=== PATIENT | female | born 1975 | race Caucasian/White ===

== ENCOUNTER 2016-12-18 10:18 | Inpatient (IN) | payer OTHER ==
[~2016-12-18] VITALS: Ht 162.6 cm; Wt 63.8 kg
[2016-12-23] MEDS ORDERED: CHLORHEXIDINE GLUCONATE 2 % 1 PACK (2 CLOTHS) TOPICAL PRN (06:15)
[2016-12-23] MEDS ORDERED: SODIUM CHLORID 0.9% 500 ML IV PRN (06:15)
[2016-12-23] MEDS ORDERED: LACTATED RINGER'S 1000 ML IV PRN (06:15)
[2016-12-23] MEDS ORDERED: INSULIN HUMAN REGULAR 1,000 UNITS/10 ML VIAL SQ PRN (06:15)
[2016-12-23] MEDS ORDERED: METOPROLOL TARTRATE 25 MG TAB PO PRN (06:15)
[2016-12-23] MEDS ORDERED: POVIDONE IODINE 5% (ANTISEPSIS KIT) 4 APPLICATIONS EACH NARE PRN (06:15)
[2016-12-23] MEDS ORDERED: ceFAZolin 2 GM PREMIX 50 ML IV SCH (06:15)
[2016-12-23] MEDS ORDERED: METF1000 PO (06:49)
[2016-12-23] MEDS ORDERED: LANTUS2P SQ (06:49)
[2016-12-23] MEDS ORDERED: NOVOLOGSS SQ (06:49)
[2016-12-23] MEDS ORDERED: fentaNYL CITRATE 250 MCG/5 ML AMP ONE (06:55)
[2016-12-23] MEDS ORDERED: DICLOFENAC SODIUM 37.5 MG/ML VIAL IV PUSH ONE (06:55)
[2016-12-23] MEDS ORDERED: DEXAMETHASONE SOD PHOS 4 MG/ML VIAL ONE (06:55)
[2016-12-23] MEDS ORDERED: ACETAMINOPHEN 1000 MG/100 ML VIAL IV ONE (06:55)
[2016-12-23] MEDS ORDERED: MIDAZOLAM HCL 2 MG/2 ML VIAL ONE (06:55)
[2016-12-23 06:57] VITALS: BP 117/80; PULSE 96; RESP 20; TEMP 97.9; O2SAT 99
[2016-12-23 07:03] LABS: INTERNATIONAL NORMALIZED RATIO 0.9 RATIO
[2016-12-23] MEDS ORDERED: FAMOTIDINE 20 MG/2 ML VIAL ONE (07:39)
[2016-12-23 11:47] LABS: BLOOD GAS BASE EXCESS -2.1 mmol/L (-2-2); BLOOD GAS CARBOXYHEMOGLOBIN 1.8 % (0-4); BLOOD GAS HCO3 22 mmol/L (22-26); BLOOD GAS O2 HGB SATURATION 97 % (90-100); BLOOD GAS OXYGEN CONTENT 16.9 Vol % (12.0-20.0); BLOOD GAS PCO2 34 mmHg (38-42); BLOOD GAS PO2 202 mmHg (61-120); BLOOD GAS TOTAL HGB 12.1 G/DL (12.0-16.0); CRITICAL VALUE NO; OXYGEN DEVICE OR; STAT YES; TEMP CORR TO 98.6
--- NOTE | 2016-12-23 11:57 | PD.OP ---
Operative Report Date of Surgery: Dec 23, 2016 Preoperative Diagnosis: Right UPJ Obstruction DM Postoperative Diagnosis: Procedure: cystoscopy, right retrograde pyelogram, right ureteral stent exchange, Right Robotic Pyeloplasty Surgeon: Derick Calvert Cardiac Technician(s): N/A Operation and Findings: See dictated report. Derick Calvert MD Dec 23, 2016 11:57
[2016-12-23] MEDS ORDERED: NEOSTIGMINE 3 MG/3 ML SYR IV ONE (12:00)
[2016-12-23] MEDS ORDERED: PROPOFOL 200 MG/20 ML AMP IV ONE (12:00)
[2016-12-23] MEDS ORDERED: ePHEDrine/NS 25 MG/5 ML SYR IV ONE (12:00)
[2016-12-23] MEDS ORDERED: LACTATED RINGER'S 1000 ML INJ 1,000 ML IV ONE (12:00)
[2016-12-23] MEDS ORDERED: MORPHINE SULFATE 4 MG/ML INJ IV PUSH PRN (12:00)
[2016-12-23] MEDS ORDERED: NORMOSOL R INJ 1,000 ML IV ONE (12:00)
[2016-12-23] MEDS ORDERED: ONDANSETRON HCL 4 MG/2 ML VIAL IV PUSH PRN ×2 (12:00→18:40)
[2016-12-23] MEDS ORDERED: PHENYLEPH/NS 1000 MCG/10 ML SYR IV ONE (12:00)
[2016-12-23] MEDS ORDERED: MORPHINE SULFATE 4 MG/ML INJ ONE (12:57)
[2016-12-23] MEDS ORDERED: DO NOT ADM ANY ANTICOAGULANT DRUGS PRN (13:00)
[2016-12-23] MEDS: PANTOPRAZOLE SODIUM 40 MG VIAL IV PUSH SCH (13:10)
[2016-12-23] MEDS ORDERED: *morphine SULFATE 8 MG/ML PERIprocedure ONLY ONE (14:12)
[2016-12-23] MEDS ORDERED: *ONDANSETRON 4 MG VIAL PERIprocedural Use ONLY ONE (14:13)
[2016-12-23] MEDS ORDERED: INSULIN ASPART SUPPLEMENTAL SCALE SQ SCH (16:00)
[2016-12-23] MEDS: INSULIN ASPART SUPPLEMENTAL SCALE SQ SCH ×2 (16:40→21:00)
--- NOTE | 2016-12-23 16:42 | PD.CONS ---
HPI Service [facility] Hospitalists Consult Requested By Dr. Derick Calvert Reason for Consult Medical Management Primary Care Physician Dr. Fred Chavez Diagnoses: History of Present Illness Mrs. Delgado is a 41 y/o female with diabetes mellitus and right UPJ obstruction s/p previous cystoscopy with ureteral stent placement earlier this year and follows with Dr. Calvert. She was admitted to [facility] on 12/23/16 by Urology and underwent cystoscopy with right retrograde pyelogram, right ureteral stent exchange, and right robotic pyeloplasty with Dr. Calvert. [facility] Hospitalist team was consulted to help with managing her chronic medical issues, specifically her diabetes. Pt is seen post-operatively and complains of nausea. Her blood sugars have been elevated in the 200-300s today. She is normally on Metformin 1, 000 Mg BIDPC, Lantus 18 Unit DAILY@0600, and NovoLog 14 Unit SQ BIDAC. She has received NovoLog high dose sliding scale and was started on Levemir 18 units daily. Pt denies any chest pain, SOB, palpitations, dizziness. Vital signs are stable. Paz catheter in place with yellow urine noted in the Paz bag. Review of Systems Constitutional: DENIES: Fever, Chills Respiratory: DENIES: Cough, Shortness of breath Cardiovascular: DENIES: Chest pain Gastrointestinal: COMPLAINS OF: Nausea, DENIES: Abdominal pain, Vomiting Genitourinary: DENIES: Hematuria Integumentary: DENIES: Rash Neurologic: DENIES: Headache Psychiatric: DENIES: Confusion Past Family Social History Past Medical History Right UPJ Obstruction/Hydronephrosis Diabetes mellitus, type 2 Anxiety/Hx of panic attacks Hx of Hepatitis C s/p treatment in 2012 Past Surgical History Cystoscopy with stent placement Cholecystectomy Reported Medications -Metformin 1,000 Mg PO BIDPC -Lantus Inj 18 Unit SQ DAILY@0600 -Novolog Inj 14 Unit SQ BIDAC Allergies: Coded Allergies: No Known Allergies (Unverified , 12/23/16) Family History Noncontributory Social History Denies any alcohol, tobacco or illicit drug use Pt lives locally with her Physical Exam Vital Signs Vital Signs Date Time Temp Pulse Resp B/P Pulse Ox O2 Delivery O2 Flow Rate FiO2 12/23/16 15:00 100 15 126/77 99 Nasal Cannula 2 12/23/16 14:00 104 15 127/77 98 Nasal Cannula 2 12/23/16 13:30 97.6 106 15 119/72 98 Nasal Cannula 2 12/23/16 13:15 105 15 129/78 100 Nasal Cannula 3 12/23/16 13:00 108 14 143/85 99 Nasal Cannula 3 12/23/16 12:45 110 14 138/82 98 Nasal Cannula 3 12/23/16 12:30 102 14 133/78 99 Nasal Cannula 3 12/23/16 12:19 97.3 116 14 144/88 99 Nasal Cannula 3 12/23/16 06:57 97.9 96 20 117/80 99 Physical Exam GENERAL: This is a well-nourished, well-developed patient, in no apparent distress. HEENT: Atraumatic. Normocephalic. No temporal or scalp tenderness. No scleral icterus. Airway patent. NECK: Trachea midline, supple, nontender. CARDIO: Regular. RESP: CTA bilaterally, poor inspiratory effort ABD: +BS, soft, nondistended. EXT: Extremities without clubbing, cyanosis, or edema. NEURO: Awake and alert. Motor and sensory grossly within normal limits. Normal speech. Laboratory Laboratory Tests Test 12/23/16 12/23/16 12/23/16 06:35 11:27 11:40 Prothrombin Time 10.0 Prothromb Time International 0.9 Ratio Blood Type B NEGATIVE Antibody Screen NEGATIVE Blood Bank Comment Random Glucose 291 Blood Gas Puncture Site DRAWN IN OR Blood Gas Patient Temperature 98.6 Blood Gas HCO3 22 Blood Gas Base Excess -2.1 Blood Gas Oxygen Saturation 97 Arterial Blood pH 7.42 Arterial Blood Partial 34 Pressure CO2 Arterial Blood Partial 202 Pressure O2 Arterial Blood Oxygen Content 16.9 Arterial Blood 1.8 Carboxyhemoglobin Arterial Blood Methemoglobin 1.0 Blood Gas Hemoglobin 12.1 Oxygen Delivery Device OR Result Diagram: 12/23/16 1127 Assessment and Plan Problem List: (1) UPJ (ureteropelvic junction) obstruction Status: Chronic Plan: - Pt is a 41 y/o female with diabetes mellitus and right UPJ obstruction s/p previous cystoscopy with ureteral stent placement earlier this year and follows with Dr. Calvert. - Pt was admitted by Urology and underwent cystoscopy with right retrograde pyelogram, right ureteral stent exchange, and right robotic pyeloplasty with Dr. Calvert on 12/23/16. - Post-op pain control per Urology - IV Cefazolin is ordered - Start IVF as she is quite nauseated and likely won't be eating much - Zofran PRN - IS - Supportive care - DVT prophylaxis (2) Diabetes mellitus type 2, insulin dependent Status: Chronic Plan: - Check Hgb A1C - At home pt is on Metformin 1,000 Mg BIDPC, Lantus 18 Unit DAILY@0600, and NovoLog 14 Unit SQ BIDAC. - Currently she is on NovoLog high dose sliding scale and was started on Levemir 18 units daily. - Stop the Metformin - Accu checks - Meds may need to be adjusted depending on what her Accu checks trend Assessment and Plan Patient examined. Assessment and plan formulated with Winnie Patterson PA-C. I agree with the above. right upj obstruction. seen post op. has some nausea. cont ivf. home insulin regimen plus ssi. Winnie Patterson Dec 23, 2016 16:42 Paulo Mariscal MD Dec 23, 2016 18:59
[2016-12-23 17:35] LABS: AUTOMATED NEUTROPHIL # 7.3 TH/MM3 (1.8-7.7); BASOPHIL % 0.2 % (0.0-2.0); HEMATOCRIT 34.7 % (35.0-46.0); HEMO FLAGS DIFF FINAL; LYMPHOCYTE # 0.6 TH/MM3 (1.0-4.8); MEAN CELL VOLUME 87.2 FL (80.0-100.0); MEAN CORPUSCULAR HEMOGLOBIN 29.7 PG (27.0-34.0); MEAN CORPUSCULAR HGB CONC 34.1 % (32.0-36.0); MONO % 2.3 % (0.0-8.0); NEUT % 90.5 % (16.0-70.0); PLATELET COUNT 189 TH/MM3 (150-450); RED BLOOD COUNT 3.98 MIL/MM3 (4.00-5.30); RED CELL DISTRIBUTION WIDTH 12.6 % (11.6-17.2)
[2016-12-23 17:45] LABS: BICARBONATE 26.7 MEQ/L (21.0-32.0); POTASSIUM 4.7 MEQ/L (3.5-5.1)
[2016-12-23] MEDS ORDERED: metFORMIN HCL 500 MG TAB PO SCH (18:00)
[2016-12-23] MEDS: SODIUM CHLOR 0.9% 1000 ML INJ 1,000 ML IV SCH (18:00)
[2016-12-23 20:00] VITALS: BP 109/70; PULSE 84; RESP 18; TEMP 95.7; O2SAT 99
[2016-12-23] MEDS ORDERED: PROMETHAZINE INJ 25 MG/ML VIAL IM ONE (20:15)
[2016-12-23] MEDS: DOCUSATE SODIUM 100 MG CAP PO SCH (21:00)
[2016-12-24] VITALS (7 sets, daily range): BP systolic 95–126; BP diastolic 53–76; PULSE 69–100; RESP 18–19; TEMP 97.3–98.1; O2SAT 94–100
[2016-12-24] MEDS: oxyCODONE/ACETAMINOPHEN 5 MG/325 MG TAB PO PRN ×4 (00:47→20:17)
[2016-12-24] MEDS: SODIUM CHLOR 0.9% 1000 ML INJ 1,000 ML IV SCH ×2 (03:22→09:25)
[2016-12-24] MEDS: INSULIN ASPART SUPPLEMENTAL SCALE SQ SCH ×4 (06:08→20:23)
[2016-12-24] MEDS: INSULIN DETEMIR 100 UNITS/ML VIAL SQ SCH (06:08)
[2016-12-24 06:17] LABS: AUTOMATED NEUTROPHIL # 4.8 TH/MM3 (1.8-7.7); BASOPHIL % 0.5 % (0.0-2.0); EOSINOPHIL % 0.4 % (0.0-4.0); HEMATOCRIT 32.9 % (35.0-46.0); HEMO FLAGS DIFF FINAL; LYMPH % 20.4 % (9.0-44.0); LYMPHOCYTE # 1.3 TH/MM3 (1.0-4.8); MEAN CELL VOLUME 88.1 FL (80.0-100.0); MEAN CORPUSCULAR HEMOGLOBIN 28.7 PG (27.0-34.0); MEAN CORPUSCULAR HGB CONC 32.6 % (32.0-36.0); MONO % 5.1 % (0.0-8.0); NEUT % 73.6 % (16.0-70.0); PLATELET COUNT 203 TH/MM3 (150-450); RED BLOOD COUNT 3.74 MIL/MM3 (4.00-5.30); RED CELL DISTRIBUTION WIDTH 12.3 % (11.6-17.2); WHITE BLOOD COUNT 6.5 TH/MM3 (4.0-11.0)
[2016-12-24 06:57] LABS: ANION GAP 6 MEQ/L (5-15); BICARBONATE 24.6 MEQ/L (21.0-32.0); BLOOD UREA NITROGEN 12 MG/DL (7-18); CHLORIDE 106 MEQ/L (98-107); GLOMERULAR FILTRATION RATE 81 ML/MIN (>89); MAGNESIUM 1.6 MG/DL (1.5-2.5); POTASSIUM 3.8 MEQ/L (3.5-5.1); SODIUM (NA) 137 MEQ/L (136-145)
--- NOTE | 2016-12-24 07:33 | HHI.PR ---
Subjective Patient symptoms today has some right shoulder pain. nausea resolved. has appetite. abdominal pain controlled. Denies fevers, chills, shortness of breath. Objective Vital Signs Vital Signs Date Time Temp Pulse Resp B/P Pulse Ox O2 Delivery O2 Flow Rate FiO2 12/24/16 04:00 97.6 69 18 95/53 96 12/24/16 00:00 97.5 71 18 99/54 97 12/23/16 20:00 95.7 84 18 109/70 99 12/23/16 19:00 96 16 114/71 98 Room Air 12/23/16 18:00 92 16 116/74 99 Room Air 12/23/16 17:00 96 16 128/74 98 Room Air 12/23/16 16:00 97.4 102 15 123/78 99 Room Air 12/23/16 15:00 100 15 126/77 99 Nasal Cannula 2 12/23/16 14:00 104 15 127/77 98 Nasal Cannula 2 12/23/16 13:30 97.6 106 15 119/72 98 Nasal Cannula 2 12/23/16 13:15 105 15 129/78 100 Nasal Cannula 3 12/23/16 13:00 108 14 143/85 99 Nasal Cannula 3 12/23/16 12:45 110 14 138/82 98 Nasal Cannula 3 12/23/16 12:30 102 14 133/78 99 Nasal Cannula 3 12/23/16 12:19 97.3 116 14 144/88 99 Nasal Cannula 3 Result Diagram: 12/24/1638 12/24/16 05 Objective Remarks NAD. A/O x 3 non labored respirations RRR abd soft, slightly distended. No peritoneal signs. Jones draining crystal clear urine. Scant drainage from JAZMIN Ext NT. no c/c/e Medications and IVs Current Medications Medications (Trade) Dose Ordered Sig/Richa Route Start Time Stop Time Status Last Admin Lactated Ringer's 1,000 ml @ 30 mls/hr Q24H PRN IV 12/23/16 06:15 12/26/16 06:14 Sodium Chloride 500 ml @ 30 mls/hr [id number] PRN IV 12/23/16 06:15 12/26/16 06:14 (Ancef Inj/NS Inj) 100 ml @ 200 mls/hr Q8H IV 12/23/16 16:00 12/24/16 00:43 (Colace) 100 mg BID PO 12/23/16 21:00 (Protonix Inj) 40 mg Q24H IV PUSH 12/23/16 12:00 12/23/16 13:10 (Percocet 5-325 Mg) 2 tab Q4H PRN PO 12/23/16 12:00 (Percocet 5-325 Mg) 1 tab Q4H PRN PO 12/23/16 12:00 12/24/16 06:09 (Morphine Inj) 4 mg Q3H PRN IV PUSH 12/23/16 12:00 (Levemir Inj) 18 units DAILY@06 SQ 12/24/16 06:00 12/24/16 06:08 Miscellaneous Information ALL NURSING DEPARTME... UNSCH PRN .XX 12/23/16 13:00 12/24/16 12:59 Ondansetron HCl 4 mg 4 mg Q4HR PRN IV PUSH 12/23/16 18:40 (NS 1000 ml Inj) 1,000 ml @ 83 mls/hr Q12H3M IV 12/23/16 18:45 12/24/16 03:22 Assessment and Plan Problem List: (1) UPJ (ureteropelvic junction) obstruction ICD Code: N13.5 Status: Chronic Assessment and Plan s/p Right Robotic Pyeloplasty, POD #1 -doing well -Advance diet -d/c jones. -Hgb stable. -JAZMIN creatinine pending -Ambulate/IS. -Appreciate Hospitalist input -Likely d/c tomorrow Deirck Calvert MD Dec 24, 2016 07:33
[2016-12-24] MEDS: DOCUSATE SODIUM 100 MG CAP PO SCH ×2 (09:00→20:07)
[2016-12-24] MEDS: PANTOPRAZOLE SODIUM 40 MG VIAL IV PUSH SCH (11:10)
--- NOTE | 2016-12-24 12:32 | RADRPT ---
EXAM DATE/TIME: 12/23/2016 09:06 [place] COMPARISON: No previous studies available for comparison. INDICATIONS : Retrograde urogram with stent placement. .56 minutes 1 CONTRAST: Instilled by Ordering Physician MEDICAL HISTORY : None. SURGICAL HISTORY : None. ENCOUNTER: Initial ACUITY: 1 day PAIN SCORE: Non-responsive. LOCATION: Right kidney FINDINGS: A limited single view of the right upper quadrant was performed. Internal ureteral stent is identifi ed. Contrast is noted within the collecting system. CONCLUSION: Single limited view of the right upper quadrant demonstrates an internal ureteral stent as well as op acification of the collecting system. Ross Becker MD on December 24, 2016 at 12:17 Board Certified Radiologist. This report was verified electronically.
--- NOTE | 2016-12-24 12:48 | HHI.PR ---
Subjective Remarks Nausea improved today Tolerating diet Pain controlled Afebrile Objective Vitals Vital Signs Date Time Temp Pulse Resp B/P Pulse Ox O2 Delivery O2 Flow Rate FiO2 12/24/16 10:21 100 21 12/24/16 08:00 97.9 100 18 100/58 97 12/24/16 04:00 97.6 69 18 95/53 96 12/24/16 00:00 97.5 71 18 99/54 97 12/23/16 20:00 95.7 84 18 109/70 99 12/23/16 19:00 96 16 114/71 98 Room Air 12/23/16 18:00 92 16 116/74 99 Room Air 12/23/16 17:00 96 16 128/74 98 Room Air 12/23/16 16:00 97.4 102 15 123/78 99 Room Air 12/23/16 15:00 100 15 126/77 99 Nasal Cannula 2 12/23/16 14:00 104 15 127/77 98 Nasal Cannula 2 12/23/16 13:30 97.6 106 15 119/72 98 Nasal Cannula 2 12/23/16 13:15 105 15 129/78 100 Nasal Cannula 3 12/23/16 13:00 108 14 143/85 99 Nasal Cannula 3 12/23/16 12:45 110 14 138/82 98 Nasal Cannula 3 12/23/16 12/23/16 12/24/16 14:59 22:59 06:59 Intake Total 2800 ml 580 ml 698 ml Output Total 800 ml 750 ml 250 ml Balance 2000 ml -170 ml 448 ml Intake Oral 240 ml IV Total 340 ml 698 ml Other 2800 ml Output Urine Total 750 ml 750 ml 250 ml Drainage Total 0 ml 0 ml Estimated Blood Loss 50 ml Result Diagram: 12/24/16 0538 12/24/16 0538 Other Results Laboratory Tests Test 12/23/16 12/23/16 12/23/16 12/23/16 06:35 11:27 11:40 16:34 Prothrombin Time 10.0 SEC Prothromb Time International 0.9 RATIO Ratio Blood Type B NEGATIVE Antibody Screen NEGATIVE Blood Bank Comment Random Glucose 291 MG/DL 294 MG/DL Blood Gas Puncture Site DRAWN IN OR Blood Gas Patient Temperature 98.6 Blood Gas HCO3 22 mmol/L Blood Gas Base Excess -2.1 mmol/L Blood Gas Oxygen Saturation 97 % Arterial Blood pH 7.42 Arterial Blood Partial 34 mmHg Pressure CO2 Arterial Blood Partial 202 mmHg Pressure O2 Arterial Blood Oxygen Content 16.9 Vol % Arterial Blood 1.8 % Carboxyhemoglobin Arterial Blood Methemoglobin 1.0 % Blood Gas Hemoglobin 12.1 G/DL Oxygen Delivery Device OR White Blood Count 8.0 TH/MM3 Red Blood Count 3.98 MIL/MM3 Hemoglobin 11.8 GM/DL Hematocrit 34.7 % Mean Corpuscular Volume 87.2 FL Mean Corpuscular Hemoglobin 29.7 PG Mean Corpuscular Hemoglobin 34.1 % Concent Red Cell Distribution Width 12.6 % Platelet Count 189 TH/MM3 Mean Platelet Volume 9.4 FL Neutrophils (%) (Auto) 90.5 % Lymphocytes (%) (Auto) 7.0 % Monocytes (%) (Auto) 2.3 % Eosinophils (%) (Auto) 0.0 % Basophils (%) (Auto) 0.2 % Neutrophils # (Auto) 7.3 TH/MM3 Lymphocytes # (Auto) 0.6 TH/MM3 Monocytes # (Auto) 0.2 TH/MM3 Eosinophils # (Auto) 0.0 TH/MM3 Basophils # (Auto) 0.0 TH/MM3 CBC Comment DIFF FINAL Differential Comment Sodium Level 136 MEQ/L Potassium Level 4.7 MEQ/L Chloride Level 104 MEQ/L Carbon Dioxide Level 26.7 MEQ/L Anion Gap 5 MEQ/L Blood Urea Nitrogen 13 MG/DL Creatinine 0.85 MG/DL Estimat Glomerular Filtration 74 ML/MIN Rate Calcium Level 8.1 MG/DL Test 12/24/16 05:38 White Blood Count 6.5 TH/MM3 Red Blood Count 3.74 MIL/MM3 Hemoglobin 10.7 GM/DL Hematocrit 32.9 % Mean Corpuscular Volume 88.1 FL Mean Corpuscular Hemoglobin 28.7 PG Mean Corpuscular Hemoglobin 32.6 % Concent Red Cell Distribution Width 12.3 % Platelet Count 203 TH/MM3 Mean Platelet Volume 8.1 FL Neutrophils (%) (Auto) 73.6 % Lymphocytes (%) (Auto) 20.4 % Monocytes (%) (Auto) 5.1 % Eosinophils (%) (Auto) 0.4 % Basophils (%) (Auto) 0.5 % Neutrophils # (Auto) 4.8 TH/MM3 Lymphocytes # (Auto) 1.3 TH/MM3 Monocytes # (Auto) 0.3 TH/MM3 Eosinophils # (Auto) 0.0 TH/MM3 Basophils # (Auto) 0.0 TH/MM3 CBC Comment DIFF FINAL Differential Comment Sodium Level 137 MEQ/L Potassium Level 3.8 MEQ/L Chloride Level 106 MEQ/L Carbon Dioxide Level 24.6 MEQ/L Anion Gap 6 MEQ/L Blood Urea Nitrogen 12 MG/DL Creatinine 0.79 MG/DL Estimat Glomerular Filtration 81 ML/MIN Rate Random Glucose 160 MG/DL Calcium Level 7.9 MG/DL Magnesium Level 1.6 MG/DL Objective Remarks General: NAD, AAOx3 Chest: CTA Cardiac: Regular Abd: +BS, soft ND Ext: No edema A/P Problem List: (1) UPJ (ureteropelvic junction) obstruction Status: Chronic Plan: - Pt is a 41 y/o female with diabetes mellitus and right UPJ obstruction s/p previous cystoscopy with ureteral stent placement earlier this year and follows with Dr. Calvert. - Pt was admitted by Urology and underwent cystoscopy with right retrograde pyelogram, right ureteral stent exchange, and right robotic pyeloplasty with Dr. Calvert on 12/23/16. - Post-op pain control per Urology - IV Cefazolin - Stop IVF as pt is tolerating diet - Zofran PRN - IS - Supportive care - DVT prophylaxis (2) Diabetes mellitus type 2, insulin dependent Status: Chronic Plan: - Hgb A1C is pending - At home pt is on Metformin 1,000 Mg BIDPC, Lantus 18 Unit DAILY@0600, and NovoLog 14 Unit SQ BIDAC. - Currently she is on NovoLog high dose sliding scale and was started on Levemir 18 units daily. - BS much better controlled today - Stop the Metformin - Accu checks Assessment and Plan Patient examined. Assessment and plan formulated with Winnie Patterson PA-C. I agree with the above. Winnie Patterson Dec 24, 2016 12:48 Paulo Mariscal MD Dec 24, 2016 22:00
[2016-12-24 16:52] LABS: HEMOGLOBIN A1a 1.2 %; HEMOGLOBIN A1b 0.8 %; HEMOGLOBIN F 1.7 %
[2016-12-25] VITALS: BP 96/61; PULSE 98; RESP 18; TEMP 97; O2SAT 95
[2016-12-25] MEDS: INSULIN ASPART SUPPLEMENTAL SCALE SQ SCH ×2 (06:18→11:56)
[2016-12-25] MEDS: oxyCODONE/ACETAMINOPHEN 5 MG/325 MG TAB PO PRN ×2 (07:19→13:39)
[2016-12-25] MEDS: INSULIN DETEMIR 100 UNITS/ML VIAL SQ SCH (07:23)
[2016-12-25 08:00] VITALS: BP 110/69; PULSE 95; RESP 17; TEMP 96.3; O2SAT 96
[2016-12-25] MEDS: DOCUSATE SODIUM 100 MG CAP PO SCH (10:15)
[2016-12-25] MEDS: PANTOPRAZOLE SODIUM 40 MG VIAL IV PUSH SCH (11:54)
[2016-12-25 12:00] VITALS: BP 130/78; PULSE 96; RESP 19; TEMP 96.6; O2SAT 97
[2016-12-25] MEDS ORDERED: DOCU1CAP39 PO (12:32)
[2016-12-25] MEDS ORDERED: OXYC1TAB63 PO (12:32)
--- NOTE | 2016-12-25 12:44 | HHI.DS ---
Discharge Summary Admission Date Dec 23, 2016 at 05:41 Discharge Date: Dec 25, 2016 Admitting Diagnosis UPJ Obstruction (1) UPJ (ureteropelvic junction) obstruction Diagnosis: Principal (2) Diabetes mellitus type 2, insulin dependent Diagnosis: Secondary Procedures cystoscopy, right retrograde pyelogram, right stent exchange, Right Robotic Pyeloplasty CBC/BMP: 12/24/16 0538 12/24/16 0538 Significant Findings Laboratory Tests Test 12/23/16 12/23/16 12/23/16 12/24/16 11:27 11:40 16:34 05:38 Random Glucose 291 MG/DL 294 MG/DL 160 MG/DL (74-106) (74-106) (74-106) Blood Gas Base Excess -2.1 mmol/L (-2-2) Arterial Blood Partial 34 mmHg (38-42) Pressure CO2 Arterial Blood Partial 202 mmHg Pressure O2 (61-120) Red Blood Count 3.98 MIL/MM3 3.74 MIL/MM3 (4.00-5.30) (4.00-5.30) Hematocrit 34.7 % 32.9 % (35.0-46.0) (35.0-46.0) Neutrophils (%) (Auto) 90.5 % 73.6 % (16.0-70.0) (16.0-70.0) Lymphocytes (%) (Auto) 7.0 % (9.0-44.0) Lymphocytes # (Auto) 0.6 TH/MM3 (1.0-4.8) Estimat Glomerular Filtration 74 ML/MIN (>89) 81 ML/MIN (>89) Rate Calcium Level 8.1 MG/DL 7.9 MG/DL (8.5-10.1) (8.5-10.1) Hemoglobin 10.7 GM/DL (11.6-15.3) Hemoglobin A1c 8.2 % (4.3-6.0) Hospital Course 41 yo female with Right UPJ obstruction was admitted following a Right Robotic Pyeloplasty. Her course was uncomplicated. Paz was removed on POD # 1. Her pain was controlled with oral narcotics. Due to her DM, Hospitalist was consulted to help manage her blood sugar. She tolerated a regular diet and started to pass flatus. JAZMIN creatinine was serum; therefore, there was no evidence of any leak. She was discharged on POD # 2. Pt Condition on Discharge: Good Discharge Disposition: Discharge Home Discharge Instructions DIET: Follow Instructions for: Diabetic Diet Activities you can perform: Full Weight Bearing, Shower Only-No Bath Activities to avoid: Driving for 24 hrs, Strenuous Activity Additional Activity Instructio: No heavy lifting greater than 15 lbs x 3 weeks New Medications: Docusate Sodium (Dok) 100 Mg Cap 100 MG PO BID Constipation #30 CAP Oxycodone-Acetaminophen (Oxycodone-Acetaminophen) 5-325 mg Tab 2 TAB PO Q4H PRN PAIN SCALE 5 TO 10 #30 Ref 0 TAB Continued Medications: Insulin Aspart Inj (Novolog Inj) 100 Unit/Ml Inj 14 UNIT SQ BIDAC Insulin Glargine Inj (Lantus Inj) 100 Unit/Ml Inj 18 UNIT SQ DAILY@0600 Metformin (Metformin) 1,000 Mg Tab 1000 MG PO BIDPC With meals Blood Sugar Management #60 Ref 0 TAB Derick Calvert MD Dec 25, 2016 12:44
--- NOTE | 2016-12-26 13:33 | MP ---
cc: PATIENCE DC MD DATE OF SURGERY: 12/23/2016 PREOPERATIVE DIAGNOSIS 1. Right congenital ureteropelvic junction obstruction. 2. History of urosepsis. POSTOPERATIVE DIAGNOSIS 1. Right congenital ureteropelvic junction obstruction. 2. History of urosepsis. PROCEDURE PERFORMED 1. Cystourethroscopy. 2. Right retrograde pyelogram. 3. Right ureteral stent exchange. 4. Right robotic pyeloplasty. SURGEON Enrike. ANESTHESIA General. COMPLICATIONS None. PREOPERATIVE ANTIBIOTICS Ancef one gram IV. DRAINS 1. A 6 x 24 double-J right ureteral stent. 2. 19-Anguillan JAZMIN drain to bulb suction. 3. 22-Anguillan three-way Paz catheter to gravity drainage. SPECIMENS None. ESTIMATED BLOOD LOSS 50 mL. FLUIDS 2800 mL of crystalloids. DISPOSITION Stable to Recovery. INDICATIONS The patient is a 41-year-old female with a history of uncontrolled type 1 diabetes, who presented to an outside hospital early back in July with urosepsis. The patient at that time was found to have severe right-sided hydronephrosis with a non-dilated ureter consistent with a right UPJ obstruction. The patient had a Lasix renogram performed following stent placement and was found to have split function of 76% on the left and 24% on the right with minimal drainage consistent with a UPJ obstruction. Treatment options were discussed with the patient. The patient elected to proceed with a robotic pyeloplasty. After the risks, benefits and alternatives were explained to the patient including possible loss of kidney, renal failure and anesthesia risks, she elected to proceed and informed consent was obtained. DETAILS OF PROCEDURE The patient was properly identified, brought back to the operating room and laid supine on the operating table. A proper timeout was performed. Under the direction of anesthesiology the patient was induced under general anesthetic. Pre-op antibiotics in the form of Ancef one gram IV was given within one hour of the start of procedure. The patient was then placed in the dorsal lithotomy position, prepped and draped in a normal sterile surgical fashion. Using a rigid cystoscope I passed it gently into the patient's bladder per the urethra without difficulty. At that time the distal portion of the indwelling right ureteral stent was identified. Using alligator grasping forceps, I then removed the stent in its entirety under fluoroscopy. The stent came out quite easily. At this time I inserted a 5-Anguillan open-ended ureteral catheter. A right retrograde pyelogram was performed which showed a stenotic segment at the right UPJ as well as a large dilated renal pelvis consistent with UPJ obstruction. With the ureteral catheter in place I then passed an indwelling guidewire up to the ureteral catheter up into the right kidney under the guidance of fluoroscopy. The right ureteral catheter was removed. A 6 x 24 double-J stent was then backloaded over the wire up into the right kidney. Fluoroscopic imaging confirmed the presence of the proximal portion of the stent in the upper pole of the kidney. The wire was then removed and a good curl was seen in the bladder. At this time the patient was then repositioned into the left lateral decubitus position with the right side up and all pressure points padded for the robotic portion of the procedure. She was then prepped and draped in normal sterile surgical fashion. A stab incision was made just superior and lateral to the umbilicus. Using a Veress needle I was able to gain access to the abdominal cavity and obtain pneumoperitoneum. The stab incision was then extended approximately 1.5 cm. Under direct visualization I then placed a 12-mm camera port. The abdominal cavity was inspected and there was no evidence of any intra-abdominal injury or bleeding. There were no adhesions that were seen. At this time the remaining ports were placed under direct visualization including the two 8 mm robotic ports which were triangulated off of the camera port as well as a 12 mm assistant store manager port in the midline inferior to the umbilicus. The robot was then brought into position. I began the operation by reflecting the colon medially by taking down the white line of Toldt. This exposed the retroperitoneum. The patient of note did have a prior cholecystectomy. I then kocherized the duodenum to further expose the kidney as well as the IVC. At this time I was able then to find the insertion of the right gonadal vein into the IVC. With careful dissection the ureter was then easily identified. The stent was palpable. I then followed the ureter towards the renal hilum. At this time I came across a large dilated renal pelvis with a small crossing vessel going across the insertion of the ureter to the right renal pelvis consistent with UPJ obstruction. At this time I then carefully dissected the vessel off of the ureteropelvic junction. I then divided the ureter at this location. The indwelling stent was seen. I then removed the indwelling stent for the renal pelvis. I then passed the ureter over this crossing vessel so that the vessel was now posterior instead of anterior to the UPJ. The renal pelvis was then widely spatulated as well as with the proximal ureter. An anastomosis was then performed with 4-0 Monocryl sutures. The anastomosis itself appeared to be watertight. At this point the abdomen insufflation pressure was brought down to 7 mmHg. There was no evidence of any bleeding. One gram of Damaris was then applied to the ureteral anastomosis area to help with hemostasis. A 19-Anguillan JAZMIN drain was then placed through the second robotic port. It was secured with a 4-0 nylon on the skin. At this time all ports were removed under direct visualization. There was no evidence of any bleeding. The skin incision was then closed with 4-0 Monocryl. This concluded the procedure. All sponge, and needle counts were correct at the end of the case. The patient was then extubated and returned to Recovery in stable condition. She will be transferred to the floor for routine postoperative care. Patience Dc MD EMBryanna/JOSELIN /7:41 AM /1:06 PM
== END 2016-12-25 15:57 | disposition home or self-care (01) | DRG 661 ==
LOC: HSDI 12-23 05:41 → N07B 12-23 20:25
PROVIDERS: ADMIT Urology; ATTEND Urology
PROC: 0T768DZ Dilation of Right Ureter with Intraluminal Device, Via Natural or Artificial Opening Endoscopic (ICD-10-PCS; 2016-12-23)
PROC: BT1D1ZZ Fluoroscopy of Right Kidney, Ureter and Bladder using Low Osmolar Contrast (ICD-10-PCS; 2016-12-23)
PROC: 8E0W4CZ Robotic Assisted Procedure of Trunk Region, Percutaneous Endoscopic Approach (ICD-10-PCS; 2016-12-23)
PROC: 0TS64ZZ Reposition Right Ureter, Percutaneous Endoscopic Approach (ICD-10-PCS; principal; 2016-12-23 07:42)
PROC: 0TP98DZ Removal of Intraluminal Device from Ureter, Via Natural or Artificial Opening Endoscopic (ICD-10-PCS; 2016-12-23 07:42)
DX: N13.5 Crossing vessel and stricture of ureter without hydronephrosis (principal); E10.65 Type 1 diabetes mellitus with hyperglycemia; Z79.4 Long term (current) use of insulin; Z79.84 Long term (current) use of oral hypoglycemic drugs
CPT/HCPCS: 74420; 80048; 82570; 82805; 82947; 82948; 83036; 83735; 85025; 85610; 86850; 86900; 86901; 94150; C1769; C2617; C9113; J0131; J0690; J1100; J1130; J1815; J2250; J2270; J2370; J2405; J2710; J3010; J7030; J7120